=== PATIENT | male | born 1940 | race Caucasian/White ===

== ENCOUNTER 2020-01-07 16:49 | Observation (INO) | payer MEDICARE, OTHER ==
[~2020-01-07] VITALS: Ht 182.9 cm; Wt 78.3 kg
[~2020-01-07 16:49] MED LIST: ASPIRIN 32325 MG/TAB PO; CALCIUM 600-D 61 TAB PO; MULTIPLE VITAMI1 CAP PO; NORCO 325 MG-7.1 TAB PO; PRILOSEC 20MG20 MG PO; ROXICODONE 55 MG/TAB PO; TIMOLOL MALEAT2.5 M1 OU; VITAMIN B12 681 TAB PO; XALATAN EYE DROPS OD; ZYRTEC 10MG10 MG PO
[2020-01-07 17:11] VITALS: BP 139/74; PULSE 50; TEMP 98.3
--- NOTE | 2020-01-07 18:25 | NUR ---
Assessment complete. Pt arrived to floor and is now settled. Denies chest pain. No discomfort at this time. is at the bedside and plans to stay the night/. Pt is alert and oriented. Completely oriented within the room. Iv started by Jeanie JOSE in R hand, no fluids running at this time. No further needs were expressed at this time. Call light is within reach
[2020-01-07 19:22] VITALS: BP 162/80; PULSE 62; TEMP 97.9
[2020-01-07] MEDS ORDERED: TIMOPTIC 0.25%-10 OU (19:26)
[2020-01-07 19:32] LABS: HEMATOCRIT 40.4 % (42.0-52.0); HEMOGLOBIN 13.5 g/dl (13.5-18.0); MEAN CELL VOLUME 97 fl (80.0-100.0); MEAN CORPUSCULAR HEMOGLOBIN 32 pg (27.0-31.0); MEAN CORPUSCULAR HGB CONC 33 g/dl (33.0-37.0); MEAN PLATELET VOLUME 10.4 fl (7.4-10.4); PLATELET COUNT 204 K/mm3 (130-400); RED BLOOD COUNT 4.18 M/mm3 (4.20-5.60); REDCELL DISTRIBUTION WIDTH-CV 13.2 % (11.5-14.5)
[2020-01-07 19:39] LABS: ANION GAP 9 mmol/L (7-16); BLOOD UREA NITROGEN 18 mg/dL (9-20); CALCIUM 9.4 mg/dL (8.4-10.2); CARBON DIOXIDE 26 mmol/L (22-30); CHLORIDE 102 mmol/L (98-107); CREATININE, serum 1.03 (0.66-1.25); GLUCOSE 99 mg/dL (74-106); POTASSIUM 4.3 mmol/L (3.4-5.0); SODIUM 138 mmol/L (137-145)
[2020-01-07 19:52] LABS: TROPONIN-I < 0.012 ng/mL (0.000-0.035)
--- NOTE | 2020-01-07 20:00 | NUR ---
Received report from REBECA Wahl. Assessment complete. Alert and oriented. at bedside. Denies any chest pain/pressure, headache, nausea or any discomfort at this time. Tele monitor in place, leads checked. INT to LH intact, flushed, dressing CDI. Needs met. Call light within reach.
[2020-01-07 20:13] LABS: BAND 1 % (0-10); EOSINOPHIL 1 % (0-4); LYMPHOCYTE 35 % (20.0-51.0); NEUTROPHILS 57 % (42.0-75.2)
[2020-01-07 20:14] LABS: PLATELET ESTIMATE NORMAL (NORMAL)
[2020-01-07 23:56] VITALS: BP 150/76; PULSE 51; TEMP 97.6
--- NOTE | 2020-01-07 23:57 | NUR ---
VSS. Pt sitting up in bed watching TV. Denies any chest pain/pressure, numbness, sweating or any discomfort. Call light within reach. Pt understands to be NPO after midnight.
[2020-01-08] VITALS (7 sets, daily range): BP systolic 117–143; BP diastolic 57–77; PULSE 53–88; TEMP 97.6–98
--- NOTE | 2020-01-08 05:34 | NUR ---
Pt made no complaints on this shift. NPO since midnight. at bedside. Call light within reach.
[2020-01-08 05:53] LABS: BASO % 0.5 % (0.0-2.0); EOS # 0.2 (0.0-0.7); EOS % 4.9 % (0-4.0); GRAN # 1.9 (1.4-6.5); GRAN % 45.6 % (42.2-75.2); HEMATOCRIT 39.5 % (42.0-52.0); HEMOGLOBIN 13.2 g/dl (13.5-18.0); LYMPH # 1.6 (1.2-3.4); LYMPH % 38.5 % (20.0-51.0); MEAN CELL VOLUME 96 fl (80.0-100.0); MEAN CORPUSCULAR HEMOGLOBIN 32 pg (27.0-31.0); MEAN CORPUSCULAR HGB CONC 33 g/dl (33.0-37.0); MEAN PLATELET VOLUME 10.7 fl (7.4-10.4); MONO # 0.4 (0.1-0.6); MONO % 10.3 % (1.7-9.3); PLATELET COUNT 187 K/mm3 (130-400); REDCELL DISTRIBUTION WIDTH-CV 13.1 % (11.5-14.5)
[2020-01-08 06:07] LABS: CALCIUM 9.2 mg/dL (8.4-10.2); CREATININE, serum 0.85 (0.66-1.25); POTASSIUM 4.1 mmol/L (3.4-5.0)
--- NOTE | 2020-01-08 07:04 | NUR ---
Report given to REBECA Goldstein.
--- NOTE | 2020-01-08 13:45 | NUR ---
SW met with the patient to discuss discharge plan. The patient lives in [place] with his , Irene ([id number]#[phone]). He reports independence with ADLs and does not have any DME. The patient's PCP is Dr. Rufus Mcpherson and he receives his medications at [facility]. He reports no difficulties obtaining his meds. The patient does not have advanced directives in EMR, but he states that he does have them completed and that his is his DPOA-HC. The patient plans to return home with his upon discharge. No additional needs at this time.
[2020-01-08] MEDS ORDERED: LIPITOR 80MG80 MG PO (14:43)
[2020-01-08] MEDS ORDERED: ASPIRIN E.C. 8181 MG PO (14:53)
--- NOTE | 2020-01-08 15:36 | NUR ---
PT DISCHARGE PROVIDED TO PT. DC'D IV WITHOUT ISSUES. UNHOOKED TELE. PT WAS PLEASED WITH LUNCH AND WAS GLAD HE COULD DISCHARGE. NO QUESTIONS WHERE VOICED. AT BEDSIDE TO DRIVE HOME. 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
== END 2020-01-08 15:20 | disposition home or self-care (01) ==
LOC: MEDICAL 16:49
PROVIDERS: ADMIT Student in an Organized Health Care Education/Training Program
DX: R07.9 Chest pain, unspecified (principal); K21.9 Gastro-esophageal reflux disease without esophagitis; Z79.82 Long term (current) use of aspirin
CPT/HCPCS: 99238; A9500; G0378; G0379; J1650; J2785